=== PATIENT | female | born 1975 | race African-American/Black ===

== ENCOUNTER 2017-10-28 20:54 | Emergency (ER) | payer SELFPAY ==
[~2017-10-28] VITALS: Ht 149.9 cm; Wt 85.6 kg
[2017-10-28] MEDS ORDERED: NAPROSYN500 MG PO (23:10)
[2017-10-28 23:40] VITALS: BP 122/80
== END 2017-10-28 23:41 | disposition home or self-care (01) ==
LOC: EME 20:54
DX: S86.911A Strain of unspecified muscle(s) and tendon(s) at lower leg level, right leg, initial encounter (principal); X50.0XXA Overexertion from strenuous movement or load, initial encounter
CPT/HCPCS: 73590; 99281; 99284